=== PATIENT | female | born 1950 | race Caucasian/White ===

== ENCOUNTER → 2017-01-17 | Outpatient (CLI) | payer MEDICARE, OTHER ==
[~2017-01-17] MED LIST: ASPIR-LOW81 MG PO; CEPHALEXIN500 M1 PO; LANTUS100 U/ML; LISINOPRIL/HCTZ1 TA1 PO; NOVOLOG100 U/ML SC; ONE DAILY1 TA1 PO; ZOCOR40 MG PO
== END ==
LOC: MC.RAD 12-20 11:00
DX: Z12.31 Encounter for screening mammogram for malignant neoplasm of breast (principal); D24.2 Benign neoplasm of left breast; D24.1 Benign neoplasm of right breast

== ENCOUNTER 2019-11-14 10:19 | Emergency (ER) | payer MEDICARE, OTHER ==
[2005-04-04 14:39] VITALS: BP 140/81
[~2019-11-14] VITALS: Ht 157.5 cm; Wt 72.7 kg
[2019-11-14 10:35] VITALS: BP 139/71; TEMP 98.7
[2019-11-14] MEDS ORDERED: GLUCOPHAGE500 MG/TAB PO (10:59)
[2019-11-14] MEDS ORDERED: CRUTCHES MC (12:29)
[2019-11-14 12:42] VITALS: PULSE 80
== END 2019-11-14 12:42 | disposition home or self-care (01) ==
LOC: COL.ER 10:19
DX: S93.402A Sprain of unspecified ligament of left ankle, initial encounter (principal); I10 Essential (primary) hypertension; E11.9 Type 2 diabetes mellitus without complications; Z90.89 Acquired absence of other organs; Z79.4 Long term (current) use of insulin; Z79.82 Long term (current) use of aspirin; X50.0XXA Overexertion from strenuous movement or load, initial encounter

== ENCOUNTER → 2021-10-10 | Outpatient (CLI) | payer MEDICARE, OTHER ==
[~2021-10-10] MED LIST changes: +CRUTCHES MC; +GLUCOPHAGE500 MG/TAB PO
== END ==
LOC: MHCPAIN 13:35
DX: M47.817 Spondylosis without myelopathy or radiculopathy, lumbosacral region (principal); M53.3 Sacrococcygeal disorders, not elsewhere classified; M54.50 Low back pain, unspecified
CPT/HCPCS: G0463

== ENCOUNTER → 2021-10-18 | Outpatient (CLI) | payer MEDICARE, OTHER | LOC: MHCPAIN 08:02 | DX: M47.817 Spondylosis without myelopathy or radiculopathy, lumbosacral region (principal); M53.3 Sacrococcygeal disorders, not elsewhere classified; M54.50 Low back pain, unspecified ==

== ENCOUNTER → 2021-10-23 | Outpatient (CLI) | payer MEDICARE, OTHER | LOC: MHCPAIN 10:43 | DX: M47.817 Spondylosis without myelopathy or radiculopathy, lumbosacral region (principal); M54.50 Low back pain, unspecified; M53.3 Sacrococcygeal disorders, not elsewhere classified | CPT/HCPCS: G0463 ==

== ENCOUNTER → 2021-11-29 | Outpatient (CLI) | payer MEDICARE, OTHER | LOC: MHCPAIN 09:50 | DX: M47.817 Spondylosis without myelopathy or radiculopathy, lumbosacral region (principal); M54.50 Low back pain, unspecified; M53.3 Sacrococcygeal disorders, not elsewhere classified ==

== ENCOUNTER → 2021-12-04 | Outpatient (CLI) | payer MEDICARE, OTHER | LOC: MHCPAIN 10:21 | DX: M47.896 Other spondylosis, lumbar region (principal); M53.3 Sacrococcygeal disorders, not elsewhere classified; G89.29 Other chronic pain | CPT/HCPCS: G0463 ==

== ENCOUNTER → 2021-12-17 | Outpatient (CLI) | payer MEDICARE | LOC: MHCPAIN 08:32 | DX: M53.3 Sacrococcygeal disorders, not elsewhere classified (principal); M47.817 Spondylosis without myelopathy or radiculopathy, lumbosacral region | CPT/HCPCS: G0260; J1040; Q9967 ==

== ENCOUNTER → 2022-01-09 | Outpatient (CLI) | payer MEDICARE | LOC: MHCPAIN 12:48 | DX: M47.817 Spondylosis without myelopathy or radiculopathy, lumbosacral region (principal); M53.3 Sacrococcygeal disorders, not elsewhere classified; M54.16 Radiculopathy, lumbar region | CPT/HCPCS: G0463 ==

== ENCOUNTER → 2022-01-24 | Outpatient (CLI) | payer MEDICARE | LOC: MHCPAIN 01-09 12:50 | DX: M47.817 Spondylosis without myelopathy or radiculopathy, lumbosacral region (principal); M53.3 Sacrococcygeal disorders, not elsewhere classified; M54.16 Radiculopathy, lumbar region | CPT/HCPCS: J1040; J1100; Q9967 ==

== ENCOUNTER → 2022-02-12 | Outpatient (CLI) | payer MEDICARE | LOC: MHCPAIN 10:22 | DX: M47.817 Spondylosis without myelopathy or radiculopathy, lumbosacral region (principal); M54.50 Low back pain, unspecified; M53.3 Sacrococcygeal disorders, not elsewhere classified | CPT/HCPCS: G0463 ==

== ENCOUNTER 2022-09-18 09:20 | Outpatient (CLI) | payer MEDICARE, OTHER ==
[2005-04-04 14:39] VITALS: BP 140/81
[~2022-09-18] VITALS: Ht 157.5 cm; Wt 112.9 kg
[~2022-09-18 09:20] MED LIST changes: -ASPIR-LOW81 MG PO; +ASPIRIN E.C. 8181 MG PO; +BENADRYL25 M2 PO; +CRESTOR20 MG PO; +EPA FISH OIL1 SGL PO; +FERROUSAL325 MG PO; +FOLIC ACID0.4 MG PO; -LISINOPRIL/HCTZ1 TA1 PO; +MOTRIN 200200 MG/TAB PO; +NOVOLIN N100 U/ML SQ; +NOVOLIN R100 U/ML SQ; -ONE DAILY1 TA1 PO; +ONE-A-DAY ESSE1 EACH PO; +PEPCID AC20 MG PO; +PREDNISONE20 MG PO; +PRINZIDE 12.5 M1 TA1 PO; +RT ADVAIR 228 DISKUS IH; +TOPROL XL 25MG25 MG PO; +VITAMIN C500 MG PO; +ZYRTEC 10MG10 MG PO
[2022-09-18 10:01] LABS: HEMATOCRIT 41.6 % (37.0-47.0); HEMOGLOBIN 14.6 g/dl (12.5-16.0); MEAN CELL VOLUME 86 fl (80.0-100.0); MEAN CORPUSCULAR HEMOGLOBIN 30 pg (27-31); MEAN CORPUSCULAR HGB CONC 35 g/dl (33.0-37.0); MEAN PLATELET VOLUME 10.4 fl (7.4-10.4); PLATELET COUNT 265 K/mm3 (130-400); RED BLOOD COUNT 4.83 M/mm3 (4.10-5.30); REDCELL DISTRIBUTION WIDTH-CV 12.7 % (11.5-14.5)
[2022-09-18 10:08] VITALS: BP 150/84; PULSE 73; TEMP 98
[2022-09-18 10:16] LABS: PROTHROMBIN TIME 11.8 SECONDS (9.7-12.8)
[2022-09-18 10:18] LABS: CALCIUM 9.7 mg/dL (8.4-10.2); CREATININE, serum 0.88 mg/dL (0.57-1.11); POTASSIUM 4.3 mmol/L (3.5-4.5)
[2022-09-18] MEDS ORDERED: EPA FISH OIL1 SGL PO (10:45)
[2022-09-18 12:00] VITALS: BP 117/67; PULSE 73
[2022-09-18 12:15] VITALS: BP 109/77; PULSE 70
[2022-09-18 12:30] VITALS: BP 147/65; PULSE 56
[2022-09-18 12:45] VITALS: BP 126/86; PULSE 64
[2022-09-18 13:00] VITALS: BP 147/78; PULSE 76
--- NOTE | 2022-09-18 13:04 | NUR ---
Pt was assisted up to restroom with wheelchair. She elected to remain sitting up in WC until discharge. She is tolerating water without issue. She refuses food at this time. went to cafeteria for lunch, DC instructions will reviewed once he returns. Call light in pt's hand.
--- NOTE | 2022-09-18 13:20 | NUR ---
DC instructions reviewed with pt and . Both expressed understanding. IV DC'd, site wrapped with coban. Pt being assisted to dress by . She will be taken out to 's car by wheelchair by ELA [facility].
== END 2022-09-18 13:20 | disposition home or self-care (01) ==
LOC: COL.RAD 09:20
PROVIDERS: Internal Medicine Adult Congenital Heart Disease
DX: I08.3 Combined rheumatic disorders of mitral, aortic and tricuspid valves (principal); I25.3 Aneurysm of heart
CPT/HCPCS: J2704